=== PATIENT | female | born 1985 | race African-American/Black ===

== ENCOUNTER 2016-11-17 00:26 | Inpatient (IN) ==
[2016-11-17 00:54] LABS: URINE SOURCE VOIDED
[2016-11-17 01:03] LABS: BILIRUBIN URINE NEGATIVE (NEGATIVE); BLOOD URINE NEGATIVE (NEGATIVE); CLARITY CLEAR (CLEAR); COLOR YELLOW; GLUCOSE URINE NEGATIVE (NEGATIVE); LEUKOCYTES URINE NEGATIVE (NEGATIVE); NITRITE URINE NEGATIVE (NEGATIVE); PROTEIN URINE NEGATIVE (NEGATIVE); UROBILINOGEN URINE NORMAL
[2016-11-17] MEDS ORDERED: PEPCID PO PRN (01:13)
[2016-11-17] MEDS ORDERED: PEPCID IV PRN (01:13)
[2016-11-17] MEDS ORDERED: LR 1,000 ML IV SCH (01:13)
[2016-11-17] MEDS ORDERED: KEFZOL 1 GM/D5W 1 GM/50 ML IVPB IV PRN (01:13)
[2016-11-17] MEDS ORDERED: STADOL IV PRN (01:13)
[2016-11-17] MEDS ORDERED: AMPICILLIN 2 GM/NS 2 GM/100 ML IVPB IV ONE (01:13)
[2016-11-17] MEDS ORDERED: ZOFRAN IV PRN (01:13)
[2016-11-17] MEDS ORDERED: PITOCIN 30 UNITS/LR 30 UNITS/500 ML IV.SOLN IV SCH (01:13)
[2016-11-17] MEDS ORDERED: TYLENOL PO PRN (01:13)
[2016-11-17] MEDS ORDERED: LR 2,000 ML ONE (01:13)
[2016-11-17] MEDS ORDERED: SODIUM CHLORIDE 0.9% INJ SCH (01:15)
[2016-11-17] MEDS ORDERED: BICITRA PO ONE (01:32)
[2016-11-17] MEDS ORDERED: PEPCID IV ONE (01:32)
[2016-11-17] MEDS ORDERED: SODIUM CHLORIDE 0.9% INJ ONE (01:32)
[2016-11-17] MEDS ORDERED: PITOCIN 20 UNITS/LR 20 UNITS/1,000 ML IV.SOLN IV SCH (02:23)
[2016-11-17] MEDS ORDERED: HYDROXYZINE PO PRN (02:23)
[2016-11-17] MEDS ORDERED: AMBIEN PO PRN (02:23)
[2016-11-17] MEDS ORDERED: PITOCIN IM PRN (02:23)
[2016-11-17] MEDS ORDERED: MINERAL OIL PO PRN (02:23)
[2016-11-17] MEDS ORDERED: PITOCIN 30 UNITS/LR 30 UNITS/500 ML IV.SOLN IV ONE (02:23)
[2016-11-17] MEDS ORDERED: BENADRYL IV PRN (02:23)
[2016-11-17] MEDS ORDERED: M-M-R II VACCINE SUBQ ONE (02:23)
[2016-11-17] MEDS ORDERED: BOOSTRIX VACCINE IM ONE (02:23)
[2016-11-17] MEDS ORDERED: XYLOCAINE-MPF 1% INJ PRN (02:23)
[2016-11-17] MEDS ORDERED: PERI MEDS (DERMOPLAST/NUPERCAINAL/TUCKS) MISC PRN (02:23)
[2016-11-17] MEDS ORDERED: HYDROXYZINE IM PRN (02:23)
[2016-11-17] MEDS ORDERED: CYTOTEC PO PRN (02:23)
[2016-11-17] MEDS ORDERED: BENADRYL PO PRN (02:23)
[2016-11-17 02:28] LABS: MANUAL DIFF NEEDED? NO
[2016-11-17 02:44] LABS: BASO% 0.1 % (0.0-0.8); EOS# 0.05 X1000 (0.0-0.7); EOS% 0.5 % (0.0-10.0); HEMOGLOBIN 12.8 g/dL (12.0-16.0); IMM GRAN# 0.06 X1000 (0.0-0.04); IMM GRAN% 0.6 % (0.0-0.5); LYMPH# 1.96 X1000 (1.2-3.4); LYMPH% 19.4 % (20.5-51.1); MCH 30.5 PG (27-31); MCHC 34.6 g/dL (33-37); MCV 88.3 FL (81-99); MONO# 0.67 X1000 (0.11-0.59); MONO% 6.6 % (1.7-9.3); MPV 10.7 FL (7.4-10.4); NEUT% 72.8 % (42.2-75.2); PLT 272 X1000 (130-400); RBC 4.19 XMIL (4.2-5.4)
[2016-11-17] MEDS: MOTRIN PO PRN ×3 (02:46→21:27)
[2016-11-17] MEDS: PERCOCET-10 PO PRN ×4 (02:46→21:27)
--- NOTE | 2016-11-17 03:15 | HISTORY AND PHYSICAL ---
CHIEF COMPLAINT: Preoperative, intrauterine at term, care with Dr. Craig, active labor, footling breech presentation. CONDITION: Stable. HISTORY OF PRESENT ILLNESS: Ms. Rousseau is a 31-year-old 2, para 1, who presents to labor and delivery this morning after going into labor at approximately 11 o'clock last night. Upon admission, she was found to have advanced cervical dilatation and when evaluated for cervical dilation, she is found was to have tense membranes which ruptured on exam with thick meconium noted and footling breech encountered. The patient states she has had care with Dr. Craig. She has not had an ultrasound since 20 weeks. She states she has had no complications during the except for some elevated blood pressure which did not require any intervention. PAST OBSTETRICAL HISTORY: Vaginal delivery at term 7 years ago. PAST MEDICAL HISTORY: No past medical history. PAST SURGICAL HISTORY: No past surgical history. ALLERGIES: Known drug allergy to Phenergan. MEDICATIONS: She is on vitamins with iron. SOCIAL HISTORY: She states that she is a half [id number] smoker. No alcohol or drugs. FAMILY HISTORY: Noncontributory. PHYSICAL EXAMINATION: VITAL SIGNS: Vital signs are stable. She is afebrile. GENERAL: She is in moderate distress. HEART: Regular sinus rhythm. ABDOMEN: Gravid. PELVIC: She is advanced. She is completely dilated. Footling breech noted. Thick meconium. EXTREMITIES: No cyanosis, clubbing, or edema in her extremities. LABORATORY DATA: No lab values to report at this time. ASSESSMENT AND PLAN: I have called for a stat delivery. cc: John Wade MD
--- NOTE | 2016-11-17 03:19 | OPERATIVE NOTE ---
PROCEDURE DATE: 11/17/2016 PREDELIVERY DIAGNOSES: 1. Term . 2. Active labor. 3. Footling breech presentation. 4. Meconium. POSTDELIVERY DIAGNOSES: 1. Term . 2. Active labor. 3. Footling breech presentation. 4. Meconium. PROCEDURE PERFORMED: Breech delivery. SURGEON: John Wade MD. ANESTHESIA: None. FINDINGS: Viable male , delivered with live double footling breech. Taken to nursery. Cord was 3 vessels. The membranes were meconium stained. Placenta delivered intact. No lacerations or tears. DESCRIPTION OF PROCEDURE: Ms. Rousseau is a 31-year-old, G 2, P 1, 38+, care with Dr. Craig. Went into active labor. Found to be breech. Moved to the operating room for delivery. She progresses and delivers both feet. Baby delivered to the hips. Hips were grasped. The baby delivered to the shoulders. Shoulders were swept across the abdomen. Finger placed in the 's mouth and the baby delivered with a flexed head. Nuchal cord x1 reduced without difficulty. Cord doubly clamped and cut. Three-vessel cord noted. Cord blood was obtained. The placenta delivered intact. No lacerations or tears. No news on the baby from nursery but expect routine . cc: John Wade MD
[2016-11-17] MEDS ORDERED: AMPICILLIN 1 GM/NS 1 GM/50 ML IVPB IV SCH (05:14)
[2016-11-17 06:54] LABS: UR AMPHETAMINES QUAL NONE DETECTED (NONE DETECT); UR BARBITUATES QUAL NONE DETECTED (NONE DETECT); UR BENZODIAZEPIN QUAL NONE DETECTED (NONE DETECT); UR CANNABINOIDS QUAL NONE DETECTED (NONE DETECT); UR COCAINE QUAL NONE DETECTED (NONE DETECT); UR MDMA QUAL NONE DETECTED (NONE DETECT); UR METHADONE QUAL NONE DETECTED (NONE DETECT); UR METHAMPHETAMINE QUAL NONE DETECTED (NONE DETECT); UR OPIATES QUAL NONE DETECTED (NONE DETECT); UR OXYCODONE QUAL NONE DETECTED (NONE DETECT); UR PCP QUAL NONE DETECTED (NONE DETECT); UR TCA QUAL NONE DETECTED (NONE DETECT)
[2016-11-17] MEDS: PRECARE PO SCH (08:42)
[2016-11-17] MEDS: PERCOCET-5 PO PRN (11:24)
[2016-11-17] MEDS: PERICOLACE PO SCH (20:11)
[2016-11-18] MEDS: PERCOCET-10 PO PRN ×3 (00:27→21:47)
[2016-11-18 06:06] LABS: MANUAL DIFF NEEDED? NO
[2016-11-18 06:14] LABS: BASO% 0.1 % (0.0-0.8); EOS# 0.07 X1000 (0.0-0.7); EOS% 0.5 % (0.0-10.0); HEMATOCRIT 28.6 % (37.0-47.0); HEMOGLOBIN 9.6 g/dL (12.0-16.0); IMM GRAN# 0.07 X1000 (0.0-0.04); IMM GRAN% 0.5 % (0.0-0.5); LYMPH# 2.23 X1000 (1.2-3.4); LYMPH% 16.4 % (20.5-51.1); MCH 30.5 PG (27-31); MCHC 33.6 g/dL (33-37); MCV 90.8 FL (81-99); MONO# 0.66 X1000 (0.11-0.59); MONO% 4.9 % (1.7-9.3); MPV 10.7 FL (7.4-10.4); NEUT% 77.6 % (42.2-75.2); PLT 223 X1000 (130-400); RBC 3.15 XMIL (4.2-5.4)
[2016-11-18] MEDS: PRECARE PO SCH (08:35)
[2016-11-18] MEDS: MOTRIN PO PRN ×2 (08:36→17:35)
[2016-11-18] MEDS: PERCOCET-5 PO PRN ×3 (08:36→17:35)
[2016-11-18] MEDS: PERICOLACE PO SCH (20:51)
[2016-11-19] MEDS: PERCOCET-5 PO PRN (05:53)
[2016-11-19 07:43] VITALS: BP 136/92
[2016-11-19] MEDS: PRECARE PO SCH (07:52)
[2016-11-19] MEDS: MOTRIN PO PRN (07:53)
[2016-11-19] MEDS: PERCOCET-10 PO PRN ×3 (09:54→16:52)
[2016-11-19] MEDS ORDERED: PNEUMOVAX 23 IM ONE (12:00)
== END 2016-11-19 18:15 | disposition home or self-care (01) ==
LOC: P.OPLD 00:26 → P.LD 00:29 → P.WC 04:20
PROVIDERS: ADMIT Obstetrics & Gynecology; ATTEND Obstetrics & Gynecology